=== PATIENT | male | born 1975 | race Caucasian/White ===

== ENCOUNTER → 2022-12-19 09:28 | Outpatient (BNVA) | payer MEDICARE, MEDICAID, SELFPAY | PROVIDERS: PCP Nurse Practitioner Family; Referring Provider Nurse Practitioner Family; Visit Provider Physician Assistant ==

== ENCOUNTER 2023-02-05 13:51 | Outpatient (AMB) | payer MEDICARE, MEDICAID, SELFPAY ==
--- NOTE | 2023-02-05 14:08 | MHC.OFFVISWM ---
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 His goal is to lose weight in so he can have a right hip replacement.? He reports first being concerned about his weight in childhood and notes that he was over 400 lb by high school..? He has tried multiple methods of weight loss including fad diets, portion control and exercise, without permanent results. He lives alone & disabled and states he has depression, schizoaffective disorder, borderline personality disorder and while he notes a history of thoughts involving self hurt, he is safe, his therapist is aware and he has no plans or intention of hurting himself or anyone else. He is currently walking with crutches in notes that he has seen 2 orthopedic surgeons regarding a right hip replacement due to arthritis. He also notes that he needs a procedure done on his right shoulder and these limit his ability to exercise. He is interested in sleeve gastrectomy. The importance of coordinating care with his PCP and psychiatrist was discussed and he both verbally and in writing gave consent to communicate with them. He notes he may have other physicians including pulmonologists in his care. Intolerance of dairy/lactose:?? Y?reports gas, bloating and diarrhea from dairy Gluten Sensitivity:??? N? Celiac? N [facility]: ZULEMA/CPAP, asthma, DVT, AFib x2, WARFARIN ANTICOAGULATION, ?hypoglycemia, walks with crutches PSH: lap ana lilia He wakes at:?variable times?bed at: variable time The importance of establishing a routine to obtain protein goals was discussed Breakfast: skips Lunch: skips or has rice to base dishes Dinner: He reports a time range from 530-830 p.m. After dinner: Other snacks: sweets Liquids: soda, black coffee, no sugar, but 8-10 mugs/day Alcohol intake: ??denied? nicotine: ?quit 6 years ago? marijuana:?daily? drugs:?occ mushrooms? caffeine: 8-10 mugs/day Exercise: none Colonoscopy: due this Mar, 2023 at [facility] NEHAL: 3 ESS: 5 GERD: 0 QOL: 108 The patient is advised that vitamin or protein supplement samples maybe provided by Nellie Dumont RD to facilitate care options. [facility] Surgical History Hx of cholecystectomy Review of Systems Const All systems reviewed & are unremarkable except as noted in HPI and below Reports as per HPI Physical Exam Vital Signs: Last Vital Signs Temp 96.8 F 02/05/23 14:28 Pulse 87 02/05/23 14:28 BP 172/88 H 02/05/23 14:28 Pulse Ox 96 02/05/23 14:28 Oxygen Delivery Method Room Air 02/05/23 14:28 BMI result Body Mass Index 53.7 The patient is non-toxic & in good spirits NC/AT, PERRLA, EOMI Mood, affect & judgment all appear appropriate Sclera anicteric conjunctiva pink and moist Oropharynx is clear with no aphthous ulcers, Mallampati class 4, mucous membranes moist Neck is supple with no masses, adenopathy or bruits Thyroid is nontender and free of dominant masses Heart is regular, normal S1-S2 no rubs or murmurs Lungs are clear and equal anteriorly with no audible wheezing, rubs or dullness to percussion Abdomen is obese with no demonstrable hernias. His supraumbilical scar is well healed with no evidence of hernia. No HSM, rebound, rigidity, guarding, masses or bruits are present. Rectal exam is deferred Skin has good turgor and is free of rashes Extremities free of cyanosis clubbing edema Assessment & Plan Assessment & Plan (1) BMI 50.0-59.9, adult: Code(s): Z68.43 - Body mass index [BMI] 50.0-59.9, adult (2) DVT (deep venous thrombosis): Code(s): I82.409 - Acute embolism and thrombosis of unspecified deep veins of unspecified lower extremity (3) Anticoagulated: Code(s): Z79.01 - retirement (current) use of anticoagulants (4) Warfarin anticoagulation: Code(s): Z79.01 - retirement (current) use of anticoagulants (5) Schizo affective schizophrenia: Code(s): F25.9 - Schizoaffective disorder, unspecified (6) Borderline personality disorder: Code(s): F60.3 - Borderline personality disorder (7) Arthritis of right hip: Code(s): M16.11 - Unilateral primary osteoarthritis, right hip (8) Shoulder injury: Code(s): S49.90XA - Unspecified injury of shoulder and upper arm, unspecified arm, initial encounter (9) Depression: Code(s): F32.A - Depression, unspecified (10) Chronic a-fib: Code(s): I48.20 - Chronic atrial fibrillation, unspecified (11) Asthma: Code(s): J45.909 - Unspecified asthma, uncomplicated (12) ZULEMA on CPAP: Code(s): G47.33 - Obstructive sleep apnea (adult) (pediatric) Plan Normal anatomy and physiology was reviewed with the patient and the importance of a high-protein/high-fiber, low-carbohydrate low-fat diet to augment any kind of weight loss was reviewed. The patient acknowledged that he does not currently have a regular schedule but requested meal information and he would try to incorporate this into his life since he would like to have his right hip replacement. The inherent risks of surgery including bleeding, infection and his increased risk for DVT were discussed. The inherent risks of surgery including weight regain if maladaptive eating returned was discussed and apparently understood. Patient is requested additional information and the sit and be fit website information was given him along with the meal plan below. The importance of coordinating his care with his PCP and psychiatrist and any other doctors involved in his care was reviewed and he gave permission to coordinate his care. I will see him at the end of February after his fasting labs and available imaging is performed. Preop Bariatric Plan 1.?? Nutritional counseling:?Be sure to careful read the number of scoops per shake if you are using powdered mix.? Substitute Celebrate Rebuild Protein Shakes & Bars for Zone Perfect bar in the printout. Start with? Celebrate ReBuild Protein shakes First shake (2 scoops in 16 oz unsweetened almond milk) at 7-9am Second shake, (2 scoops in 16 oz unsweetened almond milk) at Noon-2pm 1 protein bar Celebrate ReBuild bars at 3-4pm. Dinner at 4pm (13 forks of protein and 13 forks of salad/vegetables). Meal to include lean meat (beef, fish, pork, turkey, chicken), cooked vegetables or a salad with olive oil and/or fruits (berries, pears, apples, kiwi). Avoid breads, potatoes, starches, rice, pasta, desserts.? The sooner you decrease carbohydrates & excess fats, the sooner you will reach your goal. 2.?? You must closely monitor your blood glucose/pressure at least twice a day. After dinner snacking should be Celebrate ReBuild protein bar if needed. Try to drink 64 oz of water daily and avoid soda and juices. ?2. Each shake would be drunk slowly, like coffee in a period of 2 hours. ?3. Cut each bar in 4 pieces and eat each piece in 30 min to make each bar last 2 hours. ?4. I emphasized the importance of measuring accurately the food portion and measure it carefully when serving the food on the plate ?5. The meal portions include 10 full-size forks of meat and 10 full-size forks of salad. You should always eat the meat portion but you can skip the forks of salad/vegetables and replace with a fruit if you like. The less you do it the better weight loss will be. ?6. One full-size fork is what can be scooped on the fork without falling aside and not what can be bit with the fork. Use regular forks like those you find in a typical restaurant. ?7.? Please send me weight measurements as soon as possible and then once a week. Always include your diet and exercise plan. Alternatively come weekly at the office for weight checks and send me the measurements. ?8. Exercise counseling:? Begin by watching a stretching for beginner?s video.? Start slowly and begin to stretch your muscles.? You should do this before and after each exercise session to prevent injury.? Please use the exercise equipment at your building. Start elliptical with a resistance of 2. Increase resistance by 1 every 3 min to your most comfortable resistance with a max resistance of 8.? Reduce the resistance by 1 every 3 minutes back down to 2 and repeat cycles for 300 calories. Alternatively, start treadmill with a speed of 3.0 and incline of 0, increasing incline by 1 every 3 minutes to the highest comfortable level (max 6 for now) then decrease in the same fashion.? Repeat process to a goal of 300 calories.? Goal of 2000 calories burned or more weekly.? You may also consider use of the stationary bike.? The easiest would be to choose the fat-burn or interval training program on the machine and do this until you reach the 300 calorie goal.? Alternatively, you can manually adjust the resistance in a similar fashion as mentioned above, (resistance of 2-8 with a goal speed of 12 mph).?Tracking calories is essential. 9. Alternatively, start walking outside daily, tracking calories with a goal of 300 calories per day, daily. If [id number] is needed, you can start there, but the goal is DAILY. You can download the kosta?Literably?which can track your time, distance and calories while walking outside.? You press start in the kosta when you start and then stop when you are finished. ? 10.? It is important to avoid and for at least 18 months postoperatively and it has been discussed at the information session 11. Please get labs, EKG and chest X-Ray within 1 week. 12. Discussed and answered all questions regarding?obtained consent to participate in the [place] [facility]?Registry. 13. Please follow the diet plan exactly, without any change.? If you do not like something about the plan or you feel hungry, you need to communicate with me so I can help you revise the plan.? You should not change the plan yourself. 14. Goal is to lose 1.5-2.0 lbs/week 15. Goal is to lose 10% of your weight before surgery, which is about 45 lbs. Ultimate weight goal: 385 lbs before surgery.? Remember that you may need to lose more weight to qualify for surgery if your abdominal ultrasound shows your liver or spleen are enlarged or if your upper GI shows a hiatal hernia. IF YOU EXPERIENCE PAIN, SEVERE SHORTNESS OF BREATH, DIZZINESS OR LIGHTHEADEDNESS, OR SIGNIFICANT CONSTIPATION OR DIARRHEA, (DIARRRHEA CAN OCCUR FROM SOME ARTIFICIAL SWEETENERS) PLEASE NOTIFY THE OFFICE! If you have diabetes, you will need to follow your blood sugars at least twice a day (morning & evening, or as needed if you are shaky/sweaty or feel hypoglycemic).? Please discuss with Dr. Rodriguez.? Text Dr. Rodriguez at [phone] If you have hypertension/high blood pressure, you will need to monitor your blood pressure regarding adjusting medications.? Please discuss with Dr. Rodriguez.? We encourage patients to track calories burned while exercising as this is a more proven method verses ?steps? or ?miles walked? apps.? Patients who have dedicated exercise time at regular intervals throughout the week have greater weight loss then patients who hope that being active at work or through their day will result in weight loss.? Your body has adapted to your current life & you need to add regular exercise, just like you added a healthier diet for your health goals. Resistance training (weight lifting) is helpful to reach your goal, strengthen your bones or if your weight loss has stalled (reached a plateau) by both burning calories & adding muscle, which increases your metabolism.? Chest, back & thigh muscles can be exercised at home or at a gym.? Please discuss your goals with Dr. Rodriguez or a qualified strainer mill operator at your local gym. YouTube options: ?Sit to Be Fit, Daily Burn, Robbin, Walk away the pounds, [employer] Project Websites: Sit and Be Fit? https://www.sitandbefit.org/ Go For Life https://ja7rzml.diana.nih.gov/ Orders: Orders Insulin Today F25.9 - Schizoaffective disorder, unspecified, F32.A - Depression, unspecified, F60.3 - Borderline personality disorder, G47.33 - Obstructive sleep apnea (adult) (pediatric), I48.20 - Chronic atrial fibrillation, unspecified, I82.409 - Acute embolism and thrombosis of unspecified deep veins of unspecified lower extremity, J45.909 - Unspecified asthma, uncomplicated, M16.11 - Unilateral primary osteoarthritis, right hip, S49.90XA - Unspecified injury of shoulder and upper arm, unspecified arm, initial encounter, Z68.43 - Body mass index [BMI] 50.0-59.9, adult, Z79.01 - retirement (current) use of anticoagulants Lipid 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 Complete Blood Count Auto Diff Today F25.9 - Schizoaffective disorder, unspecified, F32.A - Depression, unspecified, F60.3 - Borderline personality disorder, G47.33 - Obstructive sleep apnea (adult) (pediatric), I48.20 - Chronic atrial fibrillation, unspecified, I82.409 - Acute embolism and thrombosis of unspecified deep veins of unspecified lower extremity, J45.909 - Unspecified asthma, uncomplicated, M16.11 - Unilateral primary osteoarthritis, right hip, S49.90XA - Unspecified injury of shoulder and upper arm, unspecified arm, initial encounter, Z68.43 - Body mass index [BMI] 50.0-59.9, adult, 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 Vitamin B1 Today F25.9 - Schizoaffective disorder, unspecified, F32.A - Depression, unspecified, F60.3 - Borderline personality disorder, G47.33 - Obstructive sleep apnea (adult) (pediatric), I48.20 - Chronic atrial fibrillation, unspecified, I82.409 - Acute embolism and thrombosis of unspecified deep veins of unspecified lower extremity, J45.909 - Unspecified asthma, uncomplicated, M16.11 - Unilateral primary osteoarthritis, right hip, S49.90XA - Unspecified injury of shoulder and upper arm, unspecified arm, initial encounter, Z68.43 - Body mass index [BMI] 50.0-59.9, adult, Z79.01 - retirement (current) use of anticoagulants Vitamin A Today F25.9 - Schizoaffective disorder, unspecified, F32.A - Depression, unspecified, F60.3 - Borderline personality disorder, G47.33 - Obstructive sleep apnea (adult) (pediatric), I48.20 - Chronic atrial fibrillation, unspecified, I82.409 - Acute embolism and thrombosis of unspecified deep veins of unspecified lower extremity, J45.909 - Unspecified asthma, uncomplicated, M16.11 - Unilateral primary osteoarthritis, right hip, S49.90XA - Unspecified injury of shoulder and upper arm, unspecified arm, initial encounter, Z68.43 - Body mass index [BMI] 50.0-59.9, adult, 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 Ferritin Today F25.9 - Schizoaffective disorder, unspecified, F32.A - Depression, unspecified, F60.3 - Borderline personality disorder, G47.33 - Obstructive sleep apnea (adult) (pediatric), I48.20 - Chronic atrial fibrillation, unspecified, I82.409 - Acute embolism and thrombosis of unspecified deep veins of unspecified lower extremity, J45.909 - Unspecified asthma, uncomplicated, M16.11 - Unilateral primary osteoarthritis, right hip, S49.90XA - Unspecified injury of shoulder and upper arm, unspecified arm, initial encounter, Z68.43 - Body mass index [BMI] 50.0-59.9, adult, 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 PTHI Today F25.9 - Schizoaffective disorder, unspecified, F32.A - Depression, unspecified, F60.3 - Borderline personality disorder, G47.33 - Obstructive sleep apnea (adult) (pediatric), I48.20 - Chronic atrial fibrillation, unspecified, I82.409 - Acute embolism and thrombosis of unspecified deep veins of unspecified lower extremity, J45.909 - Unspecified asthma, uncomplicated, M16.11 - Unilateral primary osteoarthritis, right hip, S49.90XA - Unspecified injury of shoulder and upper arm, unspecified arm, initial encounter, Z68.43 - Body mass index [BMI] 50.0-59.9, adult, 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 XR chest 2V Today F25.9 - Schizoaffective disorder, unspecified, F32.A - Depression, unspecified, F60.3 - Borderline personality disorder, G47.33 - Obstructive sleep apnea (adult) (pediatric), I48.20 - Chronic atrial fibrillation, unspecified, I82.409 - Acute embolism and thrombosis of unspecified deep veins of unspecified lower extremity, J45.909 - Unspecified asthma, uncomplicated, M16.11 - Unilateral primary osteoarthritis, right hip, S49.90XA - Unspecified injury of shoulder and upper arm, unspecified arm, initial encounter, Z68.43 - Body mass index [BMI] 50.0-59.9, adult, Z79.01 - retirement (current) use of anticoagulants ECG 12 lead EKG Today F25.9 - Schizoaffective disorder, unspecified, F32.A - Depression, unspecified, F60.3 - Borderline personality disorder, G47.33 - Obstructive sleep apnea (adult) (pediatric), I48.20 - Chronic atrial fibrillation, unspecified, I82.409 - Acute embolism and thrombosis of unspecified deep veins of unspecified lower extremity, J45.909 - Unspecified asthma, uncomplicated, M16.11 - Unilateral primary osteoarthritis, right hip, S49.90XA - Unspecified injury of shoulder and upper arm, unspecified arm, initial encounter, Z68.43 - Body mass index [BMI] 50.0-59.9, adult, Z79.01 - retirement (current) use of anticoagulants FL upper GI w air Today F25.9 - Schizoaffective disorder, unspecified, F32.A - Depression, unspecified, F60.3 - Borderline personality disorder, G47.33 - Obstructive sleep apnea (adult) (pediatric), I48.20 - Chronic atrial fibrillation, unspecified, I82.409 - Acute embolism and thrombosis of unspecified deep veins of unspecified lower extremity, J45.909 - Unspecified asthma, uncomplicated, M16.11 - Unilateral primary osteoarthritis, right hip, S49.90XA - Unspecified injury of shoulder and upper arm, unspecified arm, initial encounter, Z68.43 - Body mass index [BMI] 50.0-59.9, adult, 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 Prothrombin Time INR Today F25.9 - Schizoaffective disorder, unspecified, F32.A - Depression, unspecified, F60.3 - Borderline personality disorder, G47.33 - Obstructive sleep apnea (adult) (pediatric), I48.20 - Chronic atrial fibrillation, unspecified, I82.409 - Acute embolism and thrombosis of unspecified deep veins of unspecified lower extremity, J45.909 - Unspecified asthma, uncomplicated, M16.11 - Unilateral primary osteoarthritis, right hip, S49.90XA - Unspecified injury of shoulder and upper arm, unspecified arm, initial encounter, Z68.43 - Body mass index [BMI] 50.0-59.9, adult, Z79.01 - retirement (current) use of anticoagulants Partial Thromboplastin Time Today B20 - Human immunodeficiency virus [HIV] disease, F25.9 - Schizoaffective disorder, unspecified, F32.A - Depression, unspecified, F60.3 - Borderline personality disorder, G47.33 - Obstructive sleep apnea (adult) (pediatric), I48.20 - Chronic atrial fibrillation, unspecified, I82.409 - Acute embolism and thrombosis of unspecified deep veins of unspecified lower extremity, J45.909 - Unspecified asthma, uncomplicated, M16.11 - Unilateral primary osteoarthritis, right hip, S49.90XA - Unspecified injury of shoulder and upper arm, unspecified arm, initial encounter, Z68.43 - Body mass index [BMI] 50.0-59.9, adult, Z79.01 - retirement (current) use of anticoagulants IRON PROFILE Today F25.9 - Schizoaffective disorder, unspecified, F32.A - Depression, unspecified, F60.3 - Borderline personality disorder, G47.33 - Obstructive sleep apnea (adult) (pediatric), I48.20 - Chronic atrial fibrillation, unspecified, I82.409 - Acute embolism and thrombosis of unspecified deep veins of unspecified lower extremity, J45.909 - Unspecified asthma, uncomplicated, M16.11 - Unilateral primary osteoarthritis, right hip, S49.90XA - Unspecified injury of shoulder and upper arm, unspecified arm, initial encounter, Z68.43 - Body mass index [BMI] 50.0-59.9, adult, Z79.01 - retirement (current) use of anticoagulants Vitamin B12 and Folate Today F25.9 - Schizoaffective disorder, unspecified, F32.A - Depression, unspecified, F60.3 - Borderline personality disorder, G47.33 - Obstructive sleep apnea (adult) (pediatric), I48.20 - Chronic atrial fibrillation, unspecified, I82.409 - Acute embolism and thrombosis of unspecified deep veins of unspecified lower extremity, J45.909 - Unspecified asthma, uncomplicated, M16.11 - Unilateral primary osteoarthritis, right hip, S49.90XA - Unspecified injury of shoulder and upper arm, unspecified arm, initial encounter, Z68.43 - Body mass index [BMI] 50.0-59.9, adult, Z79.01 - retirement (current) use of anticoagulants Zinc Today F25.9 - Schizoaffective disorder, unspecified, F32.A - Depression, unspecified, F60.3 - Borderline personality disorder, G47.33 - Obstructive sleep apnea (adult) (pediatric), I48.20 - Chronic atrial fibrillation, unspecified, I82.409 - Acute embolism and thrombosis of unspecified deep veins of unspecified lower extremity, J45.909 - Unspecified asthma, uncomplicated, M16.11 - Unilateral primary osteoarthritis, right hip, S49.90XA - Unspecified injury of shoulder and upper arm, unspecified arm, initial encounter, Z68.43 - Body mass index [BMI] 50.0-59.9, adult, Z79.01 - retirement (current) use of anticoagulants Comprehensive Met. 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 C Reactive Protein Today F25.9 - Schizoaffective disorder, unspecified, F32.A - Depression, unspecified, F60.3 - Borderline personality disorder, G47.33 - Obstructive sleep apnea (adult) (pediatric), I48.20 - Chronic atrial fibrillation, unspecified, I82.409 - Acute embolism and thrombosis of unspecified deep veins of unspecified lower extremity, J45.909 - Unspecified asthma, uncomplicated, M16.11 - Unilateral primary osteoarthritis, right hip, S49.90XA - Unspecified injury of shoulder and upper arm, unspecified arm, initial encounter, Z68.43 - Body mass index [BMI] 50.0-59.9, adult, Z79.01 - retirement (current) use of anticoagulants TSH reflex Free T4 Today F25.9 - Schizoaffective disorder, unspecified, F32.A - Depression, unspecified, F60.3 - Borderline personality disorder, G47.33 - Obstructive sleep apnea (adult) (pediatric), I48.20 - Chronic atrial fibrillation, unspecified, I82.409 - Acute embolism and thrombosis of unspecified deep veins of unspecified lower extremity, J45.909 - Unspecified asthma, uncomplicated, M16.11 - Unilateral primary osteoarthritis, right hip, S49.90XA - Unspecified injury of shoulder and upper arm, unspecified arm, initial encounter, Z68.43 - Body mass index [BMI] 50.0-59.9, adult, Z79.01 - retirement (current) use of anticoagulants H Pylori Breath Test Today F25.9 - Schizoaffective disorder, unspecified, F32.A - Depression, unspecified, F60.3 - Borderline personality disorder, G47.33 - Obstructive sleep apnea (adult) (pediatric), I48.20 - Chronic atrial fibrillation, unspecified, I82.409 - Acute embolism and thrombosis of unspecified deep veins of unspecified lower extremity, J45.909 - Unspecified asthma, uncomplicated, M16.11 - Unilateral primary osteoarthritis, right hip, S49.90XA - Unspecified injury of shoulder and upper arm, unspecified arm, initial encounter, Z68.43 - Body mass index [BMI] 50.0-59.9, adult, Z79.01 - retirement (current) use of anticoagulants Vitamin D 25-OH Total Today F25.9 - Schizoaffective disorder, unspecified, F32.A - Depression, unspecified, F60.3 - Borderline personality disorder, G47.33 - Obstructive sleep apnea (adult) (pediatric), I48.20 - Chronic atrial fibrillation, unspecified, I82.409 - Acute embolism and thrombosis of unspecified deep veins of unspecified lower extremity, J45.909 - Unspecified asthma, uncomplicated, M16.11 - Unilateral primary osteoarthritis, right hip, S49.90XA - Unspecified injury of shoulder and upper arm, unspecified arm, initial encounter, Z68.43 - Body mass index [BMI] 50.0-59.9, adult, Z79.01 - retirement (current) use of anticoagulants Hemoglobin A1c Today F25.9 - Schizoaffective disorder, unspecified, F32.A - Depression, unspecified, F60.3 - Borderline personality disorder, G47.33 - Obstructive sleep apnea (adult) (pediatric), I48.20 - Chronic atrial fibrillation, unspecified, I82.409 - Acute embolism and thrombosis of unspecified deep veins of unspecified lower extremity, J45.909 - Unspecified asthma, uncomplicated, M16.11 - Unilateral primary osteoarthritis, right hip, S49.90XA - Unspecified injury of shoulder and upper arm, unspecified arm, initial encounter, Z68.43 - Body mass index [BMI] 50.0-59.9, adult, Z79.01 - retirement (current) use of anticoagulants US abdomen comp w elastography Today F25.9 - Schizoaffective disorder, unspecified, F32.A - Depression, unspecified, F60.3 - Borderline personality disorder, G47.33 - Obstructive sleep apnea (adult) (pediatric), I48.20 - Chronic atrial fibrillation, unspecified, I82.409 - Acute embolism and thrombosis of unspecified deep veins of unspecified lower extremity, J45.909 - Unspecified asthma, uncomplicated, M16.11 - Unilateral primary osteoarthritis, right hip, S49.90XA - Unspecified injury of shoulder and upper arm, unspecified arm, initial encounter, Z68.43 - Body mass index [BMI] 50.0-59.9, adult, 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 Referrals Behavioral Health Referral F25.9 - Schizoaffective disorder, unspecified, F32.A - Depression, unspecified, F60.3 - Borderline personality disorder, G47.33 - Obstructive sleep apnea (adult) (pediatric), I48.20 - Chronic atrial fibrillation, unspecified, I82.409 - Acute embolism and thrombosis of unspecified deep veins of unspecified lower extremity, J45.909 - Unspecified asthma, uncomplicated, M16.11 - Unilateral primary osteoarthritis, right hip, S49.90XA - Unspecified injury of shoulder and upper arm, unspecified arm, initial encounter, Z68.43 - Body mass index [BMI] 50.0-59.9, adult, 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01 - retirement (current) use of anticoagulants Coding Level of Care Code New Pt Level 4 (03594) Diagnoses BMI 50.0-59.9, adult Z68.43 DVT (deep venous thrombosis) I82.409 Anticoagulated Z79.01 Warfarin anticoagulation Z79.01 Schizo affective schizophrenia F25.9 Borderline personality disorder F60.3 Arthritis of right hip M16.11 Shoulder injury S49.90XA Depression F32.A Chronic a-fib I48.20 Asthma J45.909 ZULEMA on CPAP G47.33
[2023-02-05 14:28] VITALS: BP 172/88; PULSE 87; TEMP 36; O2SAT 96; BMI 53.7
== END 2023-02-05 15:49 | disposition home or self-care (01) ==
PROVIDERS: PCP Nurse Practitioner Family; Visit Provider Surgery
DX: E66.01 Morbid (severe) obesity due to excess calories (principal); Z68.43 Body mass index [BMI] 50.0-59.9, adult; Z79.01 Long term (current) use of anticoagulants; I82.409 Acute embolism and thrombosis of unspecified deep veins of unspecified lower extremity; F25.9 Schizoaffective disorder, unspecified; F60.3 Borderline personality disorder; M16.11 Unilateral primary osteoarthritis, right hip; S49.90XA Unspecified injury of shoulder and upper arm, unspecified arm, initial encounter; F32.A Depression, unspecified; I48.20 Chronic atrial fibrillation, unspecified; J45.909 Unspecified asthma, uncomplicated; G47.33 Obstructive sleep apnea (adult) (pediatric)
CPT/HCPCS: 99204

== ENCOUNTER → 2023-02-05 13:51 | Outpatient (BNVA) | payer MEDICARE, MEDICAID, SELFPAY | PROVIDERS: PCP Nurse Practitioner Family; Visit Provider Surgery ==

== ENCOUNTER 2023-02-26 13:02 | Outpatient (AMB) | payer MEDICARE, MEDICAID, SELFPAY ==
--- NOTE | 2023-02-26 12:10 | A.OFFWM_ITS ---
Intake Intake Visit Reasons: VIDEO BH Intake Allergies diazepam [From Valium] Allergy (Severe, Verified 02/05/23 14:39) Hallucinations prednisolone Allergy (Severe, Unverified 02/05/23 14:39) Anaphylaxis quetiapine [From Seroquel] Allergy (Severe, Verified 02/05/23 14:39) [facility] Surgical History Hx of cholecystectomy Behavioral Health Assessment Weight Management Therapy Therapy Notes Details Pt is looking to have weight loss surgery to help improve his health and quality of life. He stated that the main reason and only reason he would want to do this is because he needs a hip replacement and they will not operate on him because of his weight. Patient stated that he was hospitalized at [facility] in the early s due to loosing touch with reality . He reported being diagnosed with schizo- affective disorder, depression, borderline personality disorder, learning disabilities such as ADHD and dyslexia. He reported a long history of outpatient mental health treatment and [facility] involvement. He moved back here in 2015 from [facility] and reconnected with services. He has been in tx at [facility], [facility], and [facility]. He is currently seeing a therapist from [facility](Cesar Mackey) as well as a medication prescriber (Tejas). Presenting Concerns Referral Source provider Reason for referral weight loss surgery evaluation Precipitating Event obesity Living Situation Current Living Situation Rent At risk of losing current housing? No Satisfied with current living situation? Yes Comments Patient lives alone. Food/Weight/Diet Expectations of change weight loss so he can get a hip replacement. History/Relationship with food love/hate rel. with food. He stated that he does not like the in and out process of food . ADHD makes it difficult for him to remember to eat. He reported an angry rel. with food. He reported drinking a half gallon of coffee every morning which equaled 2300 calories. also a gallon of milk up to 2 in a week until he developed lactose intolerance. He stated for 30 years he would drink a gallon of milk a day. Pizza, he would binge on a large pizza often. He reported also being a sugar junkie . History/Relationship with weight Per previous records, he has been overweight most of his life. History/Relationship with dieting various diets Binge Eating Do you frequently eat large amounts of food in short periods of time, not feeling physically hungry? Yes Do you feel out of control when you eat a large amount of food in a short period of time? Yes Do you eat large amounts of food rapidly and typically alone? 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 No Financial Situation Describe current financial situation Financial struggles are a major source of stress Financial assistance? Food [place] and SSDI Service Service? No Mental Health and Addiction Treatment Current/Past substance abuse? No Current/Past addictive behavior concerns? No Medical and Physical Health Summary Physical exam in the last year? Yes Pain Screening Current pain? Yes Pain in the last few months? Yes Medications Is the patient compliant with medications? Yes Does the patient have De[employer] Guardian in place? Not applicable Does the patient use complimentary health approaches? No Trauma/Abuse History History of trauma? Yes Questionnaires PHQ-9 Over the last 2 weeks, how often have you been bothered by any of the following problems? 1. Little interest or pleasure in doing things: more than half the days 2. Feeling down, depressed, or hopeless: nearly every day 3. Trouble falling or staying asleep, or sleeping too much: nearly every day 4. Feeling tired or having little energy: nearly every day 5. Poor appetite or overeating: nearly every day 6. Feeling bad about yourself - or that you are a failure or have let yourself or your family down: nearly every day 7. Trouble concentrating on things, such as reading the newspaper or watching television: nearly every day 8. Moving or speaking so slowly that other people could have noticed. Or the opposite - being so fidgety or restless that you have been moving around a lot more than usual: more than half the days 9. Thoughts that you would be better off or of hurting yourself in some way: several days Total score: 23 Depression Screening Interpretation: Positive Depression Screening Done: Yes Source: Developed by Drs. Huey Limon, Dolores Rico, Dat Brownlee and colleagues, with an educational floridalma from [employer]. Binge Eating Scale Group 1 A. I don't feel self-conscious about my wt. or body size when I'm with others. B. I feel concerned about how I look to others, but it normally does not make me fell disappointed with myself C. I do get self-conscious about my appearance and wt. which makes me feel disappointed in myself. D. I feel very self-conscious about my wt. and frequently I feel intense shame and disgust for myself. I try to avoid social contacts because of my self- consciousness. Response Group 1: A Group 2 A. I don't have any difficulty eating slowly in the proper manner. B. Although I seem to gobble down foods, I don't end up feeling stuffed because of eating to much. C. At times, I tend to eat quickly and then, I feel uncomfortably full afterwards. D. I have the habit of bolting down my food, without really chewing it. When this happens I usually feel uncomfortably stuffed because I've eaten to much. Response Group 2: D Group 3 A. I feel capable to control my eating urges when I want to. B. I feel like I have failed to control my eating more than the average person. C. I feel utterly helpless when it comes to feeling in control of my eating urges. D. Because I feel so helpless about controlling my eating I have become very desperate about trying to get control. Response Group 3: B Group 4 A. I don't have the habit of eating when I'm bored. B. I sometimes eat when I'm bored, but often I'm able to get busy and get my mind off food. C. I have a regular habit of eating when I'm bored, but occasionally, I can use some other activity to get my mind off eating. D. I have a strong habit of eating when I'm bored. Nothing seems to help me breath the habit. Response Group 4: A Group 5 A. I'm usually physically hungry when I eat something. B. Occasionally, I eat something on impulse even though I really am not hungry. C. I have the regular habit of eating foods, that I might not really enjoy, to satisfy a hungry feeling even though physically, I don't need the food. D. Although I'm not physically hungry, I get a hungry feeling in my mouth that only seems to be satisfied when I eat a food, like sandwich, that fills my mouth. Sometimes, when I eat the food to satisfy my mouth hunger, I then spit the food out so I won't gain weight. Response Group 5: A Group 6 A. I don't feel any guilt or self-hate after I overeat. B. After I overeat, occasionally I feel guilt or self-hate. C. Almost all the time I experience strong guilt or self-hate after I overeat. Response Group 6: C Group 7 A. I don't lose total control of my eating when dieting even after periods when I overeat. B. Sometimes when I eat a forbidden food on a diet, I feel like I blew it and eat even more. C. Frequently, I have the habit of saying to myself, I've blown it now, why not go all the way, when I overeat on a diet. When that happens I eat more. D. I have a regular habit of starting a strict diets for myself but I break the diets by going on an eating binge. My life seems to be either a feast or famine. Response Group 7: D Group 8 A. I rarely eat so much food that I feel uncomfortably stuffed afterwards. B. Usually about once a month, I each such a quantity of food, I end up feeling very stuffed. C. I have regular periods during the month when I eat large amounts of food, either at mealtime or at snacks. D. I eat so much food that I regularly feel quite uncomfortable after eating and sometimes a bit nauseous. Response Group 8: C Group 9 A. My level of calorie intake does not go up very high or go down very low on a regular basis. B. Sometimes after I overeat, I will try to reduce my caloric intake to almost nothing to compensate for the excess calories I've eaten. C. I have a regular habit of overeating during the night. It seems that my routine is not to be hungry in the morning but overeat in the evening. D. In my adult years, I have had week-long periods where I practically starve myself. This follows periods when I overeat. It seems I live a life of either feast or famine. Response Group 9: D Group 10 A. I usually am able to stop eating when I want to. I know when enough is enough. B. Every so often, I experience a compulsion to eat which I can't seem to control. C. Frequently, I experience strong urges to eat which I seem unable to control, but at other times I can control my eating urges. D. I feel incapable of controlling urges to eat. I have a fear of not being able to stop eating voluntarily. Response Group 10: C Group 11 A. I don't have any problem stopping eating when I feel full. B. I usually can stop eating when I feel full but occasionally overeat leaving me feeling uncomfortably stuffed. C. I have a problem stopping eating once I start and usually I feel uncomfortably stuffed after I eat a meal. D. Because I have a problem not being able to stop eating when I want, I sometimes have to induce vomiting to relieve my stuffed feeling. Response Group 11: C Group 12 A. I seem to eat just as much when I'm with others, Family social gatherings as when I'm by myself. B. Sometimes, when I'm with other persons, I don't eat as much as I want to eat because I'm self-conscious about my eating. C. Frequently, I eat only a small amount of food when others are present, because I'm very embarrassed about my eating. D. I feel so ashamed about overeating that I pick times to overeat when I know no one will see me. I feel like a closet eater. Response Group 12: B Group 13 A. I eat three meals a day with only an occasional between meal snack. B. I eat 3 meals a day, but I also normally snack between meals. C. When I am snacking heavily, I get in the habit of skipping regular meals. D. There are regular periods when I seem to be continually eating, with no planned meals. Response Group 13: A Group 14 A. I don't think much about trying to control unwanted eating urges. B. At least some of the time, I feel my thoughts are pre-occupied with trying to control my eating urges. C. I feel that frequently I spend much time thinking about how much I ate or about trying not to eat anymore. D. It seems to me that most of my waking hours are pre-occupied by thoughts about eating or not eating. I feel like I'm constantly struggling not to eat. Response Group 14: B Group 15 A. I don't think about food a great deal. B. I have strong craving for food but they last only for brief periods of time. C. I have days when I can't seem to think about anything else but food. D. Most of my days seem to be pre-occupied with thoughts about food. I feel like I live to eat. Response Group 15: B Group 16 A. I usually know whether or not I'm physically hungry. I take the right portion of food to satisfy me. B. Occasionally, I feel uncertain about knowing whether or not I'm physically hungry. A these times it's hard to know how much food I should take to satisfy me. C. Even though I might know how many calories I should eat, I don't have any idea what is a normal amount of food for me. Response Group 16: C Binge Eating Score: 23 Score less than 17 Minimal Risk Score between 18-26 Moderate Risk Score between 27-46 High Risk Assessment & Plan Assessment & Plan (1) Schizophrenia, schizo-affective type, depressed: Code(s): F25.1 - Schizoaffective disorder, depressive type (2) BMI 50.0-59.9, adult: Code(s): Z68.43 - Body mass index [BMI] 50.0-59.9, adult (3) Borderline personality disorder: Code(s): F60.3 - Borderline personality disorder Plan Patient is a 48 year old male who presents for evaluation due to seeking weight loss surgery. He reports a long history of chronic mental illness and many years of inpatient and outpatient treatment. He is currently disabled and reported struggling to afford the products. We discussed the difference in cost with how he was eating before and now. Patient struggled somewhat in this interview to stay on topic. He will be seen again. Telehealth Telehealth Location of provider rendering services: other Location of patient: address on file Patient Identification confirmed using: Name, : Yes Telehealth method: video Patient verbally consented to treatment: Yes Patient verbally consented to billing insurance company: Yes Patient informed of any privacy concerns related to visit: Yes Minutes spent on Phone/Video with Pt.: 45 Coding Level of Care Code Tele Psy Diag Eval (58371) Diagnoses Schizophrenia, schizo-affective type, depressed F25.1 BMI 50.0-59.9, adult Z68.43 Borderline personality disorder F60.3 Time Spent (min) 45
--- OUTSIDE RECORDS SUMMARY | 2023-02-26 13:06 | XMS_ITS | Continuity of Care Document ---
Author Name Unknown Organization [facility] Aaron lt Address [address] [place] [address]- Care Team Providers Care [employer] Associate Name Role Phone Jostin GUEVARA, Joy Estevez Primary Care Physician En[place] [facility] Date(s): 12/15/22 - 01/14/23 [facility] Adult [address] [place] [address]- Allergies, Adverse Reactions, Alerts Substance Reaction Severity Status Valium 'suicidal Active predniSONE anaphylaxis Active Seroquel crazy Active Silvadene allergic dermatitis Active Immunizations Given and Recorded Vaccine Date Status Refusal Reason SARS-CoV-2 (COVID-19) mRNA-1273 vaccine 03/12/21 R ecorded SARS-CoV-2 (COVID-19) mRNA-1273 vaccine 09/04/20 R ecorded SARS-CoV-2 (COVID-19) mRNA-1273 vaccine 1 08/07/20 Recorded diphtheria-tetanus toxoids (DT) 2 10/10/15 Given 1Result Comment: left deltoid lot [id number] exp 09-04-[facility] 2[facility] Comment: [01/30/2016] Received at [facility] Medications acetaminophen 325 mg oral tablet 650 mg, By Mouth, Every 4 hours, PRN, Temperature Greater than 100.5, Refills 0, Maintenance, Pain , Mild, 02/19/21 9:18:00 EDT, Partial fill upon patient request if the prescription is for a schedule II opioid drug. Start Date: 02/19/21 Status: Ordered albuterol CFC free 90 mcg/inh inhalation aerosol 2, puffs, Inhalation, Every 4 hours, as needed for wheezing, # 18 Gm, Refills 5, Tot. Refills 5, Maintenance, 07/31/22 17:56:00 EDT, Aerosol, Route to Pharmacy Electronically, [id number], [facility]/pharmacy #[id number], 193, cm, 07/31/22... Start Date: 07/31/22 Status: Ordered Ativan 0.5 mg oral tablet See Instructions, TAKE 1 TABLET AT BEDTIME AND 1 TABLET 1 HOUR PRIOR TO PROCEDURE, # 2 tablet, 0 Refills, Maintenance, 09/26/22 15:38:00 EDT, Partial fill upon patient request if the prescription is for a schedule II opioid drug. Start Date: 09/26/22 Status: Ordered BILATERAL KNEE SEMI CUSTOM ACL BRACE WITH UNDERSLEEVE BILATERAL KNEE SEMI CUSTOM ACL BRACE WITH UNDERSLEEVE, See Instructions, # 1 each, Refills 0, Tot. Refills 0, Maintenance, BILATERAL KNEE SEMI CUSTOM ACL BRACE WITH UNDERSLEEVE DX: LEFT KNEE INSTABILITY DUE TO CONNCETIVE TISSUE DISEASE, 02/26/21 13... Start Date: 02/26/21 Status: Ordered CPAP 14 CPAP 14, See Instructions, # 1 each, Refills 0, Tot. Refills 0, Maintenance, with heated humidification, use overnight and naps, from [facility]. G47.33, 11/08/19 22:19:00 EDT, Compound Start Date: 11/08/19 Status: Ordered Flovent HFA 220 mcg/inh inhalation aerosol 2 puffs, Inhalation, 2 times a day, # 36 each, 3 Refills, Maintenance, 12/02/22 9:54:00 EDT, [facility] STORE [id number], 193, cm, 10/21/22 9:00:00 EDT, Height, 193, kg, 02/19/21 6:16:00 EDT, Dry Weight Start Date: 12/02/22 Status: Ordered Imodium A-D 2 mg oral tablet 4 mg, 2, tablet, By Mouth, Every 4 hours, PRN, Maintenance, for loose stool, 02/18/21 18:26:00 EDT,Partial fill upon patient request if the prescription is for a schedule II opioid drug. Start Date: 02/18/21 Status: Ordered INR check in 3 days INR check in 3 days, See Instructions, # 1 each, Refills 0, Tot. Refills 0, Maintenance, Goal INR 2-3 Forward result to PCP, 02/19/21 10:45:00 EDT, Supply Start Date: 02/19/21 Status: Ordered iron gluconate 2 tablets, By Mouth, Daily, 0 Refills, Maintenance, 09/20/20 13:24:00 EDT, Partial fill upon patient request if the prescription is for a schedule II opioid drug. Start Date: 09/20/20 Status: Ordered lamotrigine 200 mg oral tablet 1 tablet, By Mouth, 2 times a day, # 180 tablet, 2 Refills, Maintenance, 08/05/22 8:01:00 EDT, [id number], 193, cm, 07/31/22 10:10:00 EDT, Height, 193, kg, 02/19/21 6:16:00 EDT, Dry Weight Start Date: 08/05/22 Status: Ordered loratadine 10 mg oral tablet 10 mg, 1, tablet, By Mouth, Daily, Maintenance, 02/18/21 18:25:00 EDT, Partial fill upon patient request if the prescription is for a schedule II opioid drug. Start Date: 02/18/21 Status: Ordered nystatin topical 250610 u/gm powder 1 application, Topically, 2 times a day, # 60 Gm, 0 Refills, Acute 05/07/23 21:00:00 EST, 09/05/22 11:10:00 EDT, Powder, [facility]/pharmacy #[id number], Partial fill upon patient request if the prescription is for a schedule II opioid drug., 1 application Topical... Start Date: 09/05/22 Stop Date: 05/07/23 Status: Ordered omeprazole 20 mg oral enteric coated capsule 1 capsule = 20 mg, By Mouth, Daily, # 30 capsule, 0 Refills, Maintenance, 05/07/22 13:18:00 EST, ECCapsule, [id number], Partial fill upon patient request if the prescription is for a schedule II opioid drug., 193, cm, 05/07/22 12:42:00 EST, H... Start Date: 05/07/22 Status: Ordered sertraline 25 mg oral tablet 1 tablet, By Mouth, Daily, # 90 tablet, 1 Refills, Maintenance, 05/30/22 9:32:00 EST, [id number], 193, cm, 05/27/22 16:23:00 EST, Height, 193, kg, 02/19/21 6:16:00 EDT, Dry Weight Start Date: 05/30/22 Status: Ordered Splint Maintenance, COMFORT FORM WRIST LEFT XL, 11/01/20 14:43:00 EDT, Supply Start Date: 11/01/20 Status: Ordered Synvisc One 48 mg/6 mL intra-articular solution = 48 mg, Intra-arterial, Once, 0 Refills, Maintenance, 12/31/20 9:34:00 EDT, Solution, Partial fillupon patient request if the prescription is for a schedule II opioid drug. Start Date: 12/31/20 Status: Ordered tamsulosin 0.4 mg oral capsule 1, capsule, By Mouth, Daily at bedtime, # 90 capsule, Refills 0, Route to Pharmacy Electronically, [facility] [id number], 192, cm, 08/05/21 12:50:00 EDT, Height, 193, kg, 02/19/21 6:16:00 EDT, Dry Weight Start Date: 11/05/21 Status: Ordered warfarin 5 mg oral tablet See Instructions, Take 2 1/2-3 tablets By Mouth Daily as directed by the anticoagulation clinic, # 270 tablet, 2 Refills, 10/03/21 11:27:00 EDT, [id number], 192, cm, 08/05/21 12:50:00 EDT, Height, 193, kg, 02/19/21 6:16:00 EDT, Dry Weight Start Date: 10/03/21 Status: Ordered warfarin 5 mg oral tablet See Instructions, take 1-3 tabs by mouth Daily as directed, # 90 tablet, 2 Refills, Maintenance, 08/25/22 12:23:00 EDT, [id number], Partial fill upon patient request if the prescription is for a schedule II opioid drug., 193, cm, 08/07/22 15:3... Start Date: 08/25/22 Status: Ordered warfarin 5 mg oral tablet See Instructions, Take 2.5 tablets by mouth daily as directed by the [facility], # 180 tablet,4 Refills, Maintenance, 06/11/22 16:00:00 EST, Tablet, [id number], Partial fill upon patient request if the prescription is for a schedule II o... Start Date: 06/11/22 Status: Ordered warfarin 5 mg oral tablet See Instructions, take 1-3 tabs by mouth once daily as directed by the coumadin clinic., # 270 tablet, 2 Refills, Maintenance, 01/29/22 14:26:00 EDT, [facility]/pharmacy #[id number], Partial fill upon patient request if the prescription is for a schedule II opioid... Start Date: 01/29/22 Status: Ordered Problem List Condition Confirmation Course Effective Dates Status H ealth Status Informant Atrial fibrillation Confirmed Active BMI 50.0-59.9, adult Confirmed Active Monilial rash Confirmed Active Chronic deep vein thrombosis (DVT) Confirmed Active Coarse tremors Confirmed Active Dermatitis Confirmed Active History of DVT of lower extremity Confirmed Active Bilateral knee pain Confirmed Active Lymphedema Confirmed Active Morbid (severe) obesity due to excess calories Confirmed Active ZULEMA (obstructive sleep apnea) Confirmed Active Schizoaffective disorder Confirmed Active Severe obesity Confirmed Active Left shoulder pain Confirmed Active Strain of left knee and leg Confirmed Active Frequent PVCs Confirmed Active Social History Social History Type Response Smoking Status Former smoker; Other : Uses vapor instead; entered on: 01/30/16 Sex Patient Care team information Care Team Personnel Name: Joy Frankel NP Position: [facility] Associate Professional Member Role: PCP Address: Address: [address] [place] [id number]- Name: Shannon Aranda PharmD Position: [facility] Associate Professional Member Role: [employer] Consulting Provider Address: Address: [address] [place] [address] [place] [address]- Care Team Related Persons Name: ROYA CHARLES Address: home [address] [place] [address] Name: ROMMEL GOLDSTEIN Address: home [address] [place] [address] Name: RUBI GOLDSTEIN Address: home [address] [place] [address] Name: JAEL GOLDSTEIN Address: home [address] [place] [address]
--- OUTSIDE RECORDS SUMMARY | 2023-02-26 13:06 | XMS_ITS | Continuity of Care Document ---
Author Name Unknown Organization [facility] Aaron lt Address [address] [place] [address]- Care Team Providers Care Assistant Financial Accountant Name Role Phone Jostin GUEVARA, Joy Estevez Primary Care Physician [phone] Encounter [facility] Date(s): 12/04/22 - 01/03/23 [facility] Adult [address] [place] [address]- Allergies, Adverse Reactions, Alerts Substance Reaction Severity Status Valium 'suicidal Active predniSONE anaphylaxis Active Seroquel crazy Active Silvadene allergic dermatitis Active Immunizations Given and Recorded Vaccine Date Status Refusal Reason SARS-CoV-2 (COVID-19) mRNA-1273 vaccine 03/12/21 R ecorded SARS-CoV-2 (COVID-19) mRNA-1273 vaccine 09/04/20 R ecorded SARS-CoV-2 (COVID-19) mRNA-1273 vaccine 1 08/07/20 Recorded diphtheria-tetanus toxoids (DT) 2 10/10/15 Given 1Result Comment: left deltoid lot [id number] exp [facility] 2Result Comment: [01/30/2016] Received at [facility] Medications acetaminophen 325 mg oral tablet 650 [...] 17:56:00 EDT, Aerosol, Route to Pharmacy Electronically, [id number], [facility]/pharmacy #[id number], 193, cm, 07/31/22... Start Date: 07/31/22 [...] each, 3 Refills, Maintenance, 12/02/22 9:54:00 EDT, [facility] STORE [id number], 193, cm, 10/21/22 9:00:00 EDT, Height, 193, [...] Refills, Maintenance, 08/05/22 8:01:00 EDT, [facility], 193, cm, 07/31/22 10:10:00 EDT, Height, 193, kg, 02/19/21 6:16:00 EDT, Dry Weight Start Date: 08/05/22 Status: Ordered loratadine 10 mg oral tablet 10 mg, 1, tablet, By Mouth, Daily, Maintenance, 02/18/21 18:25:00 EDT, Partial fill upon patient request if the prescription is for a schedule II opioid drug. Start Date: 02/18/21 Status: Ordered nystatin topical 437806 u/gm powder 1 application, Topically, 2 times a day, # 60 Gm, 0 Refills, Acute 05/07/23 21:00:00 EST, 09/05/22 11:10:00 EDT, Powder, [facility]/pharmacy #[id number], Partial fill upon patient request if [...] Refills, Maintenance, 05/30/22 9:32:00 EST, [facility], 193, cm, 05/27/22 16:23:00 EST, Height, 193, [...] capsule, Refills 0, Route to Pharmacy Electronically, [facility] STORE [id number], 192, cm, 08/05/21 12:50:00 EDT, Height, 193, [...] tablet, 2 Refills, Maintenance, 01/29/22 14:26:00 EDT, [facility]/pharmacy #[id number], Partial fill upon patient request if the [...] Team Personnel Name: Joy Frankel NP Position: [facility] PCO Associate Professional Member Role: PCP Address: Address: [address] [place] [address]- Name: Shannon Aranda PharmD Position: [facility] Associate Professional Member Role: Lifetime Consulting Provider Address: Address: [address] [place] [address] [place] [address]- Care Team Related Persons Name: ROYA CHARLES Address: home [address] [place] [address] Name: ROMMEL GOLDSTEIN Address: home [address] [place] [address] Name: RUBI GOLDSTEIN Address: home [address] [place] [address] Name: JAEL GOLDSTEIN Address: [address] [place] [address]
--- OUTSIDE RECORDS SUMMARY | 2023-02-26 13:06 | XMS_ITS | Continuity of Care Document ---
Author Name Unknown Organization [facility] Address [address] [address]- Care Team Providers Care Breast Buffer Name Role Phone Jostin GUEVARA, Joy Estevez Primary Care Physician Encounter [facility] AC[facility] R [id number] Date(s): 10/14/22 - 02/07/23 [facility] [address] [address]- Attending Physician: Lucy Martinez MD Admitting Physician: Lucy Martinez MD Referring Physician: Joy Frankel NP Allergies, Adverse Reactions, Alerts Substance Reaction Severity Status predniSONE anaphylaxis Active Seroquel crazy Active Silvadene allergic dermatitis Active Valium 'suicidal Active Immunizations Given and Recorded Vaccine Date Status Refusal Reason SARS-CoV-2 (COVID-19) mRNA-1273 vaccine 03/12/21 R ecorded SARS-CoV-2 (COVID-19) mRNA-1273 vaccine 09/04/20 R ecorded SARS-CoV-2 (COVID-19) mRNA-1273 vaccine 1 08/07/20 Recorded diphtheria-tetanus toxoids (DT) 2 10/10/15 Given 1Result Comment: left deltoid lot [id number] exp [facility] 2Result Comment: [01/30/2016] Received at [facility] Medications acetaminophen 325 mg oral tablet 650 [...] 17:56:00 EDT, Aerosol, Route to Pharmacy Electronically, [id number], [facility]/pharmacy #[id number], 193, cm, 07/31/22... Start Date: 07/31/22 [...] heated humidification, use overnight and naps, from [facility]. G47.33, 11/08/19 22:19:00 EDT, Compound Start Date: 11/08/19 Status: Ordered Flovent HFA 220 mcg/inh inhalation aerosol 2 puffs, Inhalation, 2 times a day, # 36 each, 3 Refills, Maintenance, 12/02/22 9:54:00 EDT, [facility], 193, cm, 10/21/22 9:00:00 EDT, Height, 193, kg, 02/19/21 6:16:00 EDT, Dry Weight Start Date: 12/02/22 Status: Ordered Golytely - oral powder for reconstitution 240 mL, By Mouth, Every 10 minutes, # 1 each, 0 Refills, Maintenance, 02/03/23 9:59:00 EDT, REC Powder, [facility]/pharmacy #[id number], Partial fill upon patient request if the prescription is for a schedule II opioid drug., 240 mL By Mouth Every 10 minutes, 193,... Start Date: 02/03/23 Status: Ordered Imodium A-D 2 mg oral [...] tablet, 2 Refills, Maintenance, 08/05/22 8:01:00 EDT, [facility] STORE 21956, 193, cm, 07/31/22 10:10:00 EDT, Height, 193, kg, 02/19/21 6:16:00 EDT, Dry Weight Start Date: 08/05/22 Status: Ordered loratadine 10 mg oral tablet 10 mg, 1, tablet, By Mouth, Daily, Maintenance, 02/18/21 18:25:00 EDT, Partial fill upon patient request if the prescription is for a schedule II opioid drug. Start Date: 02/18/21 Status: Ordered nystatin topical 618393 u/gm powder 1 application, Topically, 2 times a day, # 60 Gm, 0 Refills, Acute 05/07/23 21:00:00 EST, 09/05/22 11:10:00 EDT, Powder, [facility]/pharmacy #[id number], Partial fill upon patient request if [...] Refills, Maintenance, 05/30/22 9:32:00 EST, [facility], 193, cm, 05/27/22 16:23:00 EST, Height, 193, [...] capsule, Refills 0, Route to Pharmacy Electronically, [facility], 192, cm, 08/05/21 12:50:00 EDT, Height, 193, [...] tablet, 2 Refills, Maintenance, 01/29/22 14:26:00 EDT, [id number], Partial fill upon patient [...] Active ZULEMA (obstructive sleep apnea) Confirmed Active Osteoarthritis of bilateral hip joints Confirmed 10/16/22 Active Schizoaffective disorder Confirmed Active Severe obesity Confirmed Active Left shoulder pain Confirmed Active Strain of left knee and leg Confirmed Active Chronic venous hypertension (idiopathic) with other complications of right lower extremity Confirmed Active Chronic venous hypertension (idiopathic) with other complications of left lower extremity Confirmed Active Frequent PVCs Confirmed Active Social History Social History Type Response Smoking Status Former smoker; Other : Uses vapor instead; entered on: 01/30/16 Sex Patient Care team information Care Team Personnel Name: Joy Frankel NP Position: [facility]O Associate Professional Member Role: PCP Address: Address: [address] [place] [address]- Name: Shannon Aranda PharmD Position: [facility] Associate Professional Member Role: Lifetime Consulting Provider Address: Address: [address] [place] [address] [place] [address]- Care Team Related Persons Name: ROYA CHARLES Address: home [address] [place] [address] Name: ROMMEL GOLDSTEIN Address: [address] [place] [address] Name: RUBI GOLDSTEIN Address: [address] [place] [address] Name: JAEL GOLDSTEIN Address: [address] [place] [address]
== END 2023-02-26 16:37 | disposition home or self-care (01) ==
LOC: HO.HBST 13:02
PROVIDERS: PCP Nurse Practitioner Family; Visit Provider Counselor Mental Health
DX: F25.1 Schizoaffective disorder, depressive type (principal); Z68.43 Body mass index [BMI] 50.0-59.9, adult; F60.3 Borderline personality disorder
CPT/HCPCS: 90791

== ENCOUNTER → 2023-02-26 13:02 | Outpatient (BNVA) | payer MEDICARE, MEDICAID, SELFPAY | PROVIDERS: PCP Nurse Practitioner Family; Visit Provider Counselor Mental Health ==